=== PATIENT | male | born 1965 | race Two or more races ===

== ENCOUNTER 2022-11-19 08:06 | Emergency (ER) | payer OTHER ==
[~2022-11-19] VITALS: Ht 177.8 cm; Wt 86.2 kg
[~2022-11-19 08:06] MED LIST: DICLOFENAC POTA50 MG; LEVAQUIN750 MG PO; MEDROLPACK PO; NEURONTIN300 MG PO; TORADOL60 MG; TRAMADOL HCL50 MG PO; VASOTEC10 MG; VISTARIL25 MG PO
[2022-11-19 09:31] LABS: HEMATOCRIT 46.2 % (39.0-48.0); HEMOGLOBIN 14.9 g/dL (13-16.00); MEAN CELL VOLUME 85.5 fL (80.0-100.00); MEAN CORPUSCULAR HEMOGLOBIN 27.7 pg (27.00-32.0); MEAN CORPUSCULAR HGB CONC 32.4 g/dl (32.0-36.0); PLATELET COUNT 296 K/uL (150-450)
[2022-11-19 09:58] LABS: CALCIUM 9.2 mg/dL (8.5-10.1); CREATININE SERUM 0.96 mg/dL (0.70-1.30); GFR 80.73; POTASSIUM 4.05 mEq/L (3.5-5.1)
== END 2022-11-19 13:59 | disposition home or self-care (01) ==
LOC: ER 08:06
DX: R10.32 Left lower quadrant pain (principal); K57.90 Diverticulosis of intestine, part unspecified, without perforation or abscess without bleeding

== ENCOUNTER 2024-11-10 06:18 | Emergency (ER) | payer OTHER ==
[~2024-11-10] VITALS: Ht 177.8 cm; Wt 86.2 kg
[2024-11-10] MEDS ORDERED: COZAAR50 MG (06:27)
[2024-11-10] MEDS ORDERED: CLINDAMYCIN PHOSPHATE 150 MG/ML (300mg) IM STA (08:23)
== END 2024-11-10 09:35 | disposition home or self-care (01) ==
LOC: ER 06:18
DX: R23.8 Other skin changes (principal)